=== PATIENT | male | born 1965 | race Caucasian/White ===

== ENCOUNTER 2019-10-05 12:43 | Inpatient (IN) ==
[2019-10-05] MEDS ORDERED: NS 0 ML ONE (13:08)
[2019-10-05] MEDS ORDERED: NS 1,000 ML IV ONE ×2 (13:11→14:43)
--- NOTE | 2019-10-05 13:27 | Diag Imaging Result Doc PS360 ---
CHEST-1 VIEW - 10/05/2019 INDICATION: hypotension COMPARISON: None FINDINGS: The lungs are normally expanded and clear. Heart size and mediastinal contours are normal. No pneumothorax or pleural effusion. IMPRESSION: Negative exam. Electronically signed by Daljit Schaefer 10/05/2019 1:24 PM
[2019-10-05] MEDS: LEVOPHED 8 MG in D5 1/2 NS 250 ML IV SCH ×2 (13:29→23:38)
[2019-10-05 13:36] LABS: INR 1.35; PROTIME 16.9 Seconds (11.0-16.0); PTT 34.6 Seconds (22.3-41.8)
[2019-10-05 14:01] LABS: BASO# 0.02 X1000 (0.0-0.2); BASO% 0.1 % (0.0-0.8); HEMATOCRIT 34.5 % (42.0-52.0); HEMOGLOBIN 11.9 g/dL (14.0-18.0); LYMPH# 0.77 X1000 (1.2-3.4); LYMPH% 2.1 % (20.5-51.1); MCH 31.3 PG (27-31); MCHC 34.5 g/dL (33-37); MCV 90.8 FL (81-99); MONO# 2.38 X1000 (0.11-0.59); MONO% 6.5 % (1.7-9.3); MPV 9.7 FL (7.4-10.4); PLT 239 X1000 (130-400); RDW 14.6 % (11.5-14.5); WBC 36.54 X1000 (4.8-10.8)
[2019-10-05 14:04] LABS: ALB/GLOB RATIO 1.1; ALBUMIN 3.2 g/dL (3.5-5.0); CALCIUM 8.5 mg/dL (8.8-10.2); POTASSIUM 4.4 mmol/L (3.5-5.1); TOTAL BILIRUBIN 0.82 mg/dL (0.20-1.00); TOTAL PROTEIN 6.1 g/dL (6.3-8.3)
[2019-10-05 14:16] LABS: BANDS 12 % (0-1); LARGE PLATELETS OCCASIONAL; LYMPHS 3 % (21-51); MONO 8 % (1-9); SEGS 77 % (42-75)
[2019-10-05] MEDS ORDERED: ZOSYN 3.375 GM in NS 50 ML IV ONE (14:43)
[2019-10-05 14:59] LABS: URINE SOURCE CLEAN CATCH
[2019-10-05 15:13] LABS: BILIRUBIN URINE NEGATIVE (NEGATIVE); BLOOD URINE NEGATIVE (NEGATIVE); COLOR YELLOW; GLUCOSE URINE NEGATIVE (NEGATIVE); KETONE URINE NEGATIVE (NEGATIVE); LEUKOCYTES URINE NEGATIVE (NEGATIVE); NITRITE URINE NEGATIVE (NEGATIVE); PROTEIN URINE TRACE mg/dL (NEGATIVE); SP GRAVITY URINE 1.012; TURBIDITY URINE CLEAR (CLEAR); UROBILINOGEN URINE NORMAL (NORMAL)
[2019-10-05 15:33] LABS: UR EPITHELIAL CELLS <10 /HPF (<10); URINE BACTERIA NEGATIVE /HPF; URINE RBC <10 /HPF (<10); URINE WBC <10 /HPF (<10)
[2019-10-05 15:37] LABS: URINE CASTS NONE SEEN; URINE CRYSTALS NONE SEEN; URINE YEAST NONE SEEN
--- NOTE | 2019-10-05 16:11 | PROVIDER DOCUMENTATION ---
This chart was entered by Ale Selby Scribe, acting as scribe for Kamran Moy MD. HPI-Respiratory General - General Chief Complaint: Shortness of Breath Stated Complaint: SOB, FEVER, BODY PAIN Time Seen by Provider: 10/05/19 13:05 Source: patient Allergies/Adverse Reactions: Patient Allergies Allergy/AdvReac Type Severity Reaction Status Date / Time No Known Allergies Allergy Verified 10/05/19 13:15 Home Medications: Home Medication List Medication Instructions Recorded Confirmed Last Taken Type NK [No Home Medications] 10/05/19 10/05/19 Unknown History - History of Present Illness-Resp Nature of Presenting Problem: 54yom presents to ED cc fever, chills, shortness of breath, weakness, fatigue, night sweats, leg cramps and back pain for last 2 weeks and bad occipital headache for last 2 days. Pt reports he was recently treated with ABT for pneumonia for 10 days. Pt is a smoker. Pt blood pressure is 78/55. Pt is nontoxic and in no respiratory distress upon exam. Quality of Pain: reports: tightness Severity in ED: reports: mild, moderate Onset/Duration: reports: last week Timing: reports: still present Cough Quality/Degree: reports: no cough Current Respiratory Medication Therapy: Initiated see nurses note Modifying Factors: worse with: exertion, deep breath Associated Symptoms: reports: fever/chills, headache, shortness of breath, short of breath Similar Symptoms Previously?: Yes Recently seen or treated by another doctor?: Yes Review of Systems - Adult - REVIEW OF SYSTEMS - ADULT Constitutional: reports: see HPI, chills, fever, fatique, night sweats Eyes: reports: no symptoms reported Ears, Nose, Mouth & Throat: reports: no symptoms reported Cardiovascular: reports: see HPI. denies: chest pain, palpitations Respiratory: reports: see HPI, shortness of breath. denies: cough Gastrointestinal: reports: no symptoms reported Genitourinary: reports: no symptoms reported Musculoskeletal: reports: see HPI, back pain, frequent leg cramps, muscle aches Integumentary: reports: no symptoms reported Neurological: reports: see HPI, headache/migraines Psychiatric: reports: no symptoms reported Endocrine: reports: no symptoms reported Hematologic/Lymphatic: reports: no symptoms reported Allergic/Immunologic: reports: no symptoms reported All Other Systems: Reviewed and Negative Past History - Adult - PAST MEDICAL HISTORY-ADULT Review of Records: reports: Nursing Assessment Review, Medications Reviewed, Social history reviewed & non-contributory. Major Childhood Illnesses: reports: denies history Cardiovascular: reports: denies history Respiratory: reports: denies history Gastrointestinal: reports: denies history Obstetrical/Gynecological: reports: denies history Genitourinary: reports: denies history Musculoskeletal: reports: denies history Neurological: reports: denies history Endocrine/Immune: reports: denies history Other Conditions: reports: denies history - IMMUNIZATION STATUS Childhood Immunizations: See Nurse Assessment Flu Vaccine: See Nurse Assessment - FAMILY HISTORY Family History: reviewed, not pertinent - SOCIAL HISTORY Smoking: cigarettes, greater than 1 pack/day Provider spent 3-5 mins advising pt. on dangers of tobacco.: Discussed manners to quit use, and f/u contacts for add'l counseling. Physical Exam-General - PHYSICAL EXAM-ADULT Initial Vital Signs Reviewed: Yes - CONSTITUTIONAL General Appearance: appears well, alert, no apparent distress. negative: anxious, combative - EYES Eyes: PERRL/EOMI, pink conjunctivae. negative: photophobia - HEAD, EARS, NOSE, MOUTH & THROAT HENMT: normocephalic/atraumatic, moist mucous membranes. negative: angioedema - NECK Neck: supple, normal inspection - RESPIRATORY Respiratory: chest non-tender, lungs clear, normal breath sounds, rhonchi (left side). negative: wheezing - CARDIOVASCULAR Cardiovascular: normal peripheral pulses, regular rate, rhythm. negative: bradycardia, tachycardia - GASTROINTESTINAL (ABDOMEN) Abdominal Exam: normal bowel sounds, non tender, soft. negative: guarding, rebound - MUSCULOSKELETAL Extremity: normal range of motion, non-tender, normal gait, normal inspection, no pedal edema, no calf tenderness, normal capillary refill. negative: deform ity, swelling - SKIN Integumentary: normal color, normal turgor, warm/dry. negative: diaphoresis, jaundice, rash - PSYCHIATRIC Psych/Mental Status: normal mood/affect, oriented x 3. negative: anxious - HEART Score HEART Score: History: Slightly Suspicious HEART Score: ECG: Normal HEART Score: Age: 45-65 Years HEART Score: Risk Factors for Atherosclerotic Disease: No Risk Factors Known HEART Score: Troponin: < or = Normal Limit Total HEART Score:: 1 Progress - PLAN OF CARE/RESULTS Progress/Plan/Lab Results: Vital Signs - 8 hr 10/05/19 12:48 10/05/19 13:10 10/05/19 13:25 Temperature 97.9 F Pulse Rate 93 H 91 H 90 Respiratory Rate 18 26 H 25 H Blood Pressure 64/45 74/46 74/51 O2 Sat by Pulse Oximetry 96 97 99 10/05/19 13:30 10/05/19 13:37 10/05/19 13:40 Temperature Pulse Rate 88 86 92 H Respiratory Rate 24 24 30 H Blood Pressure 76/49 86/58 82/58 O2 Sat by Pulse Oximetry 99 100 100 10/05/19 13:45 10/05/19 13:50 10/05/19 13:55 Temperature Pulse Rate 83 93 H 77 Respiratory Rate 26 H 27 H 32 H Blood Pressure 96/67 79/47 90/57 O2 Sat by Pulse Oximetry 100 99 100 10/05/19 14:10 10/05/19 14:40 10/05/19 14:55 Temperature Pulse Rate 83 86 85 Respiratory Rate 26 H 26 H 25 H Blood Pressure 95/63 89/56 90/55 O2 Sat by Pulse Oximetry 100 97 98 10/05/19 15:15 10/05/19 15:40 10/05/19 15:42 Temperature Pulse Rate 90 84 93 H Respiratory Rate 28 H 30 H 30 H Blood Pressure 110/74 77/58 93/70 O2 Sat by Pulse Oximetry 100 98 99 10/05/19 15:38 Influenza Screen - Final Nasopharyngeal Laboratory Results - last 24 hr 10/05/19 10/05/19 10/05/19 13:08 13:08 13:08 WBC 36.54 H RBC 3.80 L Hgb 11.9 L Hct 34.5 L MCV 90.8 MCH 31.3 H MCHC 34.5 RDW Std Deviation 14.6 H Plt Count 239 MPV 9.7 Neut % (Auto) Not Reportable Lymph % (Auto) 2.1 L [place] % (Auto) 6.5 Eos % (Auto) Not Reportable Baso % (Auto) 0.1 Neut # (Auto) Not Reportable Lymph # (Auto) 0.77 L [place] # (Auto) 2.38 H Eos # (Auto) Not Reportable Baso # (Auto) 0.02 Segmented Neutrophils 77 H Band Neutrophils 12 H Lymphocytes 3 L Monocytes 8 Pathologist Review Large Platelets OCCASIONAL PT INR PTT (Actin FS) Sodium 131 L Potassium 4.4 Chloride 95 L Carbon Dioxide 19 L Anion Gap 17 BUN 28 H Creatinine 2.0 H Estimated GFR/1.73 m2 35 BUN/Creatinine Ratio 14 Glucose 85 Calculated Osmolality 267 Calcium 8.5 L Total Bilirubin 0.82 AST 26 ALT 26 Alkaline Phosphatase 74 Creatine Kinase 69 Troponin T High Sens 12 Total Protein 6.1 L Albumin 3.2 L Globulin 2.9 Albumin/Globulin Ratio 1.1 Plasma Lactate Urine Source Urine Color Urine Turbidity Urine pH Ur Specific [place] Urine Protein Ur Glucose (Stick) Ur Ketones (Stick) Urine Blood Urine Nitrite Urine Bilirubin Urobilinogen Dipstick Urine Leukocytes Urine WBC (Auto) Urine RBC (Auto) U Epithel Cells (Auto) Urine Bacteria (Auto) Urine Crystals Small Round Cells Urine Casts Urine Yeast-like Cells 10/05/19 10/05/19 10/05/19 13:08 13:08 14:41 WBC RBC Hgb Hct MCV MCH MCHC RDW Std Deviation Plt Count MPV Neut % (Auto) Lymph % (Auto) [place] % (Auto) Eos % (Auto) Baso % (Auto) Neut # (Auto) Lymph # (Auto) [place] # (Auto) Eos # (Auto) Baso # (Auto) Segmented Neutrophils Band Neutrophils Lymphocytes Monocytes Pathologist Review Large Platelets PT 16.9 H INR 1.35 PTT (Actin FS) 34.6 Sodium Potassium Chloride Carbon Dioxide Anion Gap BUN Creatinine Estimated GFR/1.73 m2 BUN/Creatinine Ratio Glucose Calculated Osmolality Calcium Total Bilirubin AST ALT Alkaline Phosphatase Creatine Kinase Troponin T High Sens Total Protein Albumin Globulin Albumin/Globulin Ratio Plasma Lactate 3.1 H Urine Source CLEAN CATCH Urine Color YELLOW Urine Turbidity CLEAR Urine pH 6.0 Ur Specific [place] 1.012 Urine Protein TRACE A Ur Glucose (Stick) NEGATIVE Ur Ketones (Stick) NEGATIVE Urine Blood NEGATIVE Urine Nitrite NEGATIVE Urine Bilirubin NEGATIVE Urobilinogen Dipstick NORMAL Urine Leukocytes NEGATIVE Urine WBC (Auto) <10 Urine RBC (Auto) <10 U Epithel Cells (Auto) <10 Urine Bacteria (Auto) NEGATIVE Urine Crystals NONE SEEN Small Round Cells Not Reportable Urine Casts NONE SEEN Urine Yeast-like Cells NONE SEEN 10/05/19 15:23 WBC RBC Hgb Hct MCV MCH MCHC RDW Std Deviation Plt Count MPV Neut % (Auto) Lymph % (Auto) [place] % (Auto) Eos % (Auto) Baso % (Auto) Neut # (Auto) Lymph # (Auto) [place] # (Auto) Eos # (Auto) Baso # (Auto) Segmented Neutrophils Band Neutrophils Lymphocytes Monocytes Pathologist Review Large Platelets PT INR PTT (Actin FS) Sodium Potassium Chloride Carbon Dioxide Anion Gap BUN Creatinine Estimated GFR/1.73 m2 BUN/Creatinine Ratio Glucose Calculated Osmolality Calcium Total Bilirubin AST ALT Alkaline Phosphatase Creatine Kinase Troponin T High Sens Total Protein Albumin Globulin Albumin/Globulin Ratio Plasma Lactate 2.3 H Urine Source Urine Color Urine Turbidity Urine pH Ur Specific [place] Urine Protein Ur Glucose (Stick) Ur Ketones (Stick) Urine Blood Urine Nitrite Urine Bilirubin Urobilinogen Dipstick Urine Leukocytes Urine WBC (Auto) Urine RBC (Auto) U Epithel Cells (Auto) Urine Bacteria (Auto) Urine Crystals Small Round Cells Urine Casts Urine Yeast-like Cells Orders Category Date Time Status Cardiac Monitoring NOW Care 10/05/19 13:06 Active IV Insertion NOW Care 10/05/19 13:06 Completed NEWS Score 2-4:Order NEWS Lactate Series NOW Care 10/05/19 12:53 Active NEWS Score >or=5:Order NEWS Bundle S.O. NOW Care 10/05/19 13:08 Active Notify Provider of NEWS Score NOW Care 10/05/19 13:06 Active CHEST-1 VIEW [RAD] Stat Exams 10/05/19 13:[address] THORAX/ABD/PELVIS W/O CON [CT] Stat Exams 10/05/19 15:18 Ordered BLOOD CULTURE [BLDCUL] Stat Lab 10/05/19 13:27 Results CBC WITH DIFF [HEME] Stat Lab 10/05/19 13:08 Completed CK PROFILE [SP CHEM] Stat Lab 10/05/19 13:08 Completed COMPREHENSIVE METABOLIC PANEL [CHEM] Stat Lab 10/05/19 13:08 Completed INFLUENZA SCREEN A/B Stat Lab 10/05/19 15:38 Completed LACTATE, PLASMA [CHEM] Lab 10/05/19 15:23 Completed LACTATE, PLASMA [CHEM] Lab 10/05/19 19:15 Uncollected LACTATE, PLASMA [CHEM] Q3H Lab 10/05/19 13:08 Completed PROTIME WITH INR [COAG] Stat Lab 10/05/19 13:08 Completed PTT [COAG] Stat Lab 10/05/19 13:08 Completed TROPONIN T HIGH SENSITIVITY Stat Lab 10/05/19 13:08 Completed URINALYSIS W/POSS RFLX CULT [URINALYSIS] Stat Lab 10/05/19 14:41 Completed URINE MANUAL MICROSCOPIC [URINALYSIS] Stat Lab 10/05/19 14:41 Completed 0.9% Sodium Chloride Inj [Ns] 1,000 ml Med 10/05/19 13:08 Discontinued .ROUTE As directed 0.9% Sodium Chloride Inj [Ns] 1,000 ml Med 10/05/19 13:11 Discontinued IV 999 mls/hr 0.9% Sodium Chloride Inj [Ns] 1,000 ml Med 10/05/19 14:43 Discontinued IV 999 mls/hr Dextrose 5%-0.45% NaCl Inj [D5 1/2 Ns] 250 ml Med 10/05/19 13:15 Active Norepinephrine [Levophed] 8 mg IV As Directed mls/hr Linezolid 600 mg/D5w [Zyvox 600 mg/D5w] Med 10/05/19 16:00 Active 600 mg in 300 ml IV Q12H Meropenem [Merrem] 500 mg Med 10/05/19 16:00 Active 0.9% Sodium Chloride Inj [Ns] 50 ml IV Q8H Piperacillin/Tazobactam [Zosyn] 3.375 gm Med 10/05/19 14:43 Discontinued 0.9% Sodium Chloride Inj [Ns] 50 ml IV NOW O2 Per Protocol Stat Oth 10/05/19 13:06 Active Transfer/Admit Order [TRANSFER] Routine Transfer 10/05/19 15:23 Ordered Result Diagrams: 10/05/19 13:08 10/05/19 13:08 - EKG 1 Time of EKG reading by physician:: 13:00 EKG Read and Signed by:: Kamran Moy EKG Interpretation (*Must complete 3 of following elements*): Normal Rate: 94 Rhythm: NSR [place]: normal QRS: normal AR Interval: normal 2 Time of EKG reading by physician:: 15:18 EKG Read and Signed by:: Kamran Moy EKG Interpretation (*Must complete 3 of following elements*): Abnormal (septal infarct, age undetermined) Rate: 92 Rhythm: NSR [place]: normal QRS: normal AR Interval: normal Prior EKG Comparison: unchanged from prior - XRAY 1 XRAY: Bilateral XRAY Study: Chest Impression: See EMR Report (IMPRESSION: Negative exam. Electronically signed by Daljit Schaefer 10/05/2019 1:24 PM) - CONSULTS/PCP/HOSPITALIST Notification #1 *Consult/PCP/Hospitalist*: Helen for Hospitalist Time Discussed: 16:08 Consult Disposition: Will see in ED, Admit Departure - Departure Date of Disposition Decision: 10/05/19 Time of Disposition Decision: 16:07 DIAGNOSIS: Leukocytosis, Sepsis, Renal insufficiency, Hyponatremia Disposition: ADMITTED INPATIENT 09 Certified Medical Emergency: Emergent Condition: Fair Referrals and Follow-Ups: None,PCP [Primary Care Provider] - Discharge Education: Tobacco Use Disorder - Critical Care Note This patient required my direct & personal management of CC.: Yes Total Time (mins): 35 Critical Care Statement: This patient required my direct personal management to treat or rule out processes, the absence of which, could potentiallly result in sudden, clinically significant life or limb threatening deterioration. Attestation - Physician/ JEREMÍAS Attestation Patient care was provided by Advanced Practice Provider:: No The physician spent face to face time with patient:: Yes Advanced Practice Provider documentation review:: Supervising physician onsite and consulted in the evaluation and care of this patient. The physician did have a face to face encounter with the patient. This chart was documented by the indicated scribe, (Ale Selby Scribe) and accurately reflects the services I performed and decisions made by me, Kamran Moy MD, as attested by the provider's signature.
--- NOTE | 2019-10-05 16:11 | SEPSIS: TISSUE PERFUSION ASSMT ---
Sepsis: Tissue Perfusion Assmt - Physical Exam Assessment Date: 10/05/19 Time Assessment Initialized: 16:09 Vital Signs: Last Vital Signs Temp 97.9 F 10/05/19 12:48 Pulse 93 H 10/05/19 15:42 Resp 30 H 10/05/19 15:42 BP 93/70 10/05/19 15:42 Pulse Ox 99 10/05/19 15:42 Height 5 ft 7 in Weight 72.575 kg 10/05/19 16:09 See nurses note Lung Sounds: lungs clear Heart Sounds: Regular Capillary Refill Time: Less Than 2 Seconds Peripheral Pulse Evaluation: radial (R): 4+, radial (L): 4+, posterior tibialis (R): 4+, posterior tibialis (L): 4+ Skin Exam: pink, turgor good - Alternative Fluid Bolus Bolus Option: Alternative Fluid Resuscitation Bolus for morbidly obese patients with a BMI >30, Refer to [place] Body Weight Chart for Reference. Is patient's BMI >30?: No Fluid Bolus dosed using the [place] Body Weight Chart: No - Impression Impression: Tissue Perfusion Adequate - Plan Plan: See Orders
--- NOTE | 2019-10-05 16:18 | HISTORY AND PHYSICAL ---
CHIEF COMPLAINT: Weakness, shortness of breath for 3 months. HPI: This is a 54-year-old gentleman who denies any prior health history who presented to the emergency room complaining of a little over 3 months of shortness of breath, just generalized weakness, being tired all the time. He states he is being seen at walk-in clinics as he has no primary care physician the latest being about 2 weeks ago for which he was given antibiotics. He did state that he took 10 days of antibiotics and symptoms have not improved whatsoever. He denies taking his temperature although he does report subjective fevers with body aches and chills. He denied any chest pain or palpitations, a productive cough. Patient complains of occipital headache for 2 days. He also complains of night sweats and leg cramps. PAST MEDICAL HISTORY: Denies. PAST SURGICAL HISTORY: Denies. SOCIAL HISTORY: He smokes about a pack a day. He denies any alcohol or illicit drug use. ALLERGIES: No known drug allergies. HOME MEDICATIONS: Denies. FAMILY HISTORY: Positive for hypertension. REVIEW OF SYSTEMS: Discussed with patient with pertinent positives stated in the HPI. He denied any syncope, any chest pain or palpitations, a productive cough, any vomiting, diarrhea, constipation, black or bloody vomitus or stools, hematuria, dysuria, frequency, urgency. PHYSICAL EXAMINATION: GENERAL: This is a 54-year-old gentleman who is lying on the stretcher in the emergency room in no distress. VITAL SIGNS: Blood pressure is 77/58 with a heart rate of 84, respirations are 22 to 26, temperature is 97.9 degrees with O2 saturations that are 98-100% on room air. HEENT: Pupils are equal, round, react to light. EOMs are intact. Sclerae are anicteric. Head is normocephalic, atraumatic. Mucous membranes are dry. NECK: Supple with trachea midline. CARDIOVASCULAR: Regular rate and rhythm. S1 and S2 are appreciated. No murmur. PULMONARY: Breath sounds are diminished throughout. Chest rises and falls symmetrically with respiration. Chest wall is nontender to palpation. GASTROINTESTINAL: Abdomen is soft, nontender, nondistended with bowel sounds in all 4 quadrants. GENITOURINARY: No CVA or suprapubic tenderness. NEUROLOGIC: He is alert and oriented x3. SKIN: Pale, warm and dry. LABS: WBC is 36.5 with hemoglobin 11.9, hematocrit 34.5 and platelets of 239,000. Sodium 131, potassium 4.4, BUN 28, creatinine 2 with a glucose of 85, total protein is 6.1. Urinalysis is essentially negative. Blood cultures are pending. Chest x-ray revealed negative exam. Lungs are normal expanded and clear, heart size, mediastinal contours are normal. No pneumothorax or pleural effusion. ASSESSMENT AND PLAN: 1. Hypotension. Levophed per protocol. 2. Bradycardia. He did have transient drop in heart rate ranged from 40 to 44. He was alert, oriented, denied any symptoms at that time. continue to monitor on telemetry. 3. Shortness of breath. supplemental oxygen as needed. 4. Fever and chills. check a flu A and B, antibiotic coverage of Zyvox and Merrem renally dosed. 5. Leukocytosis. 6. Hyponatremia. continue with saline and recheck labs in the morning. 7. Acute kidney injury. Continue with hydration, renal dose medications as appropriate. The patient was evaluated and plan was discussed with Dr. Leavitt. Further treatments pending hospital course. Dictated by ALETA Echevarria for Venkata Cm MD Addendum: Patient seen and examined by myself. Agree with ALETA note. It reflects my assessment and plan. Patient is being admitted for septic shock with source of sepsis not clear. Will send him to ICU, continue with vasopressors and follow results of CT thorax, abdomen and pelvis. cc: ALETA Echevarria MD [facility]
--- NOTE | 2019-10-05 16:25 | EKG Report ---
Test Performed on : 10/05/2019 1:00:10 PM Test Reason : ED. NO order in [place] Blood Pressure : / mmHG Vent. Rate : 094 BPM Atrial Rate : 094 BPM P-R Int : 138 ms QRS Dur : 092 ms QT Int : 352 ms P-R-T Axes : 041 025 047 degrees QTc Int : 440 ms Normal sinus rhythm. Normal ECG No previous ECGs available Unconfirmed Result
--- NOTE | 2019-10-05 16:48 | Diag Imaging Result Doc PS360 ---
EXAM: CT THORAX/ABD/PELVIS W/O CON 10/05/2019 HISTORY: leukocytosis, hypotension, dyspnea TECHNIQUE: This exam was performed using automated exposure control, adjustment of mA or kV according to patient size, and/or use of iterative reconstruction technique. COMMENT: Thorax: There are no previous studies available for comparison. There are prominent prevascular and paratracheal nodes with a precarinal node measuring up to 14 mm in size. There are somewhat smaller aorticopulmonary window nodes. There is subcarinal adenopathy. There is infrahilar mass like opacity and ill-defined opacity in the left upper lobe. There is some increase in interstitial markings in the left posterior costophrenic sulcus. The same is true of the right lower lobe. There are emphysematous changes and pleural fibrotic appearing opacity in both apices. Systems are distended. Otherwise no definite acute abnormalities are present in the visualized portion of the abdomen. The regional skeleton appears to be intact. ABDOMEN/pelvis: There is hydronephrosis and bilateral ureterectasis. The urinary bladder is distended. There are no apparent stones. There is no evidence of bowel obstruction. There is no free fluid. The prostate gland is not particularly enlarged. There are bilateral bone islands in the femoral heads. Evaluation of the solid organs is somewhat suboptimal due to the lack of contrast. IMPRESSION: 1. Left upper and lower lobe pneumonia. The possibility of neoplastic disease in the left lower lobe cannot be excluded. Mediastinal adenopathy. 2. Urinary retention in the bladder with bilateral hydronephrosis. Electronically signed by Logan Mena 10/05/2019 4:46 PM
[2019-10-05] MEDS ORDERED: ZOFRAN IV PRN (16:49)
[2019-10-05] MEDS: MERREM 500 MG in NS 50 ML IV SCH ×2 (17:04→23:01)
[2019-10-05] MEDS: ZYVOX 600 MG/D5W 600 MG/300 ML IVPB IV SCH (17:04)
[2019-10-05] MEDS ORDERED: OFIRMEV 1000 MG/ISOTONIC SOLN 1,000 MG/100 ML BOTTLE IV PRN (19:49)
[2019-10-06] MEDS: ZYVOX 600 MG/D5W 600 MG/300 ML IVPB IV SCH ×2 (03:16→15:27)
[2019-10-06 05:24] LABS: BASO# 0.03 X1000 (0.0-0.2); BASO% 0.1 % (0.0-0.8); HEMOGLOBIN 12.1 g/dL (14.0-18.0); LYMPH# 1.26 X1000 (1.2-3.4); LYMPH% 3.8 % (20.5-51.1); MCH 30.9 PG (27-31); MCHC 34.6 g/dL (33-37); MCV 89.5 FL (81-99); MONO# 1.35 X1000 (0.11-0.59); MONO% 4.1 % (1.7-9.3); PLT 270 X1000 (130-400); RBC 3.91 XMIL (4.7-6.1); RDW 14.5 % (11.5-14.5); WBC 32.92 X1000 (4.8-10.8)
[2019-10-06 06:00] LABS: AGAP 11; ALB/GLOB RATIO 0.8; ALBUMIN 2.7 g/dL (3.5-5.0); ALKALINE PHOSPHATASE 68 U/L (32-122); BUN 20 mg/dL (8-22); CALCIUM 8.3 mg/dL (8.8-10.2); CHLORIDE 106 mmol/L (98-107); COSMO 281; ESTIMATED GFR > 60; GLUCOSE 119 mg/dL (70-104); GOT 15 U/L (10-34); GPT 18 U/L (10-44); MAGNESIUM 1.9 mg/dL (1.5-2.7); POTASSIUM 3.5 mmol/L (3.5-5.1); SODIUM 139 mmol/L (136-145); TCO2 22 mmol/L (25-35); TOTAL BILIRUBIN 0.42 mg/dL (0.20-1.00); TOTAL PROTEIN 5.9 g/dL (6.3-8.3)
[2019-10-06] MEDS ORDERED: NS 1,000 ML IV ONE (06:08)
[2019-10-06 06:15] LABS: AGAP 12; ALBUMIN 2.7 g/dL (3.5-5.0); BUN 20 mg/dL (8-22); CALCIUM 8.4 mg/dL (8.8-10.2); CHLORIDE 105 mmol/L (98-107); COSMO 279; ESTIMATED GFR > 60; GLUCOSE 119 mg/dL (70-104); PHOSPHORUS 2.2 mg/dL (2.7-4.5); POTASSIUM 3.5 mmol/L (3.5-5.1); SODIUM 138 mmol/L (136-145); TCO2 21 mmol/L (25-35)
--- NOTE | 2019-10-06 06:38 | PROGRESS NOTE ---
DATE: 10/06/2019 SUBJECTIVE: The patient reports breathing better. He had an episode of fever last night of 101.6 degrees. No other complaints noted. OBJECTIVE: Vital Signs: Temperature is 98.7 degrees, heart rate 75, respiratory 17, blood pressure 93/62, O2 saturation 95% on room air. General Examination: This is a 54-year-old male in no acute distress. Cardiovascular: S1, S2 heard. No murmurs, gallops, or rubs. Regular rate and rhythm. Respiratory: Decreased breath sounds globally. Minimal rhonchi in both pulmonary bases. Patient is not using any accessory muscles or having work of breathing. Abdomen: Soft. Nontender to palpation. Bowel sounds present. No organomegaly. Extremities: No clubbing, cyanosis, or edema. Peripheral pulses present in both legs. Neurological: Patient is alert and oriented x3. Moves 4 extremities. LABORATORY DATA: White cell count 32.92, hemoglobin 12.1, hematocrit 35.0, platelets 270,000. BMP still pending. CT of the chest and pelvis showed left upper and lower lobe pneumonia. The possibility of neoplastic disease in the left lower lobe cannot be excluded with mediastinal adenopathy and urinary retention in the bladder with bilateral lower hydronephrosis. ASSESSMENT AND PLAN: 1. Septic shock secondary to left upper and lower lobe pneumonia. The patient continues to be on vasopressors and we are weaning off from that. We will continue to provide 1 L of normal saline bolus. We will continue with normal saline at 100 mL/h. The patient is still spiking fever. White cell count has improved a little bit from 36,000 to 32,000. We will continue with current management and in this case is Zyvox and meropenem. Of course, blood cultures and urine cultures still pending. We will continue to monitor this patient closely in ICU. 2. Acute kidney injury/bilateral The results from this CMP are still pending. The CT of the chest abdomen and pelvis does not show any obstruction. We are going to do a renal ultrasound to see if there is any obstruction in the urinary system. Will consult Urology and Nephrology and will go from there. We will monitor renal profile daily. 3. Tachycardic that was present on admission but resolved right now. 4. Disposition. We will continue to monitor this patient closely. We will follow recommendation from subspecialists. cc: Venkata Cm MD MTDD
[2019-10-06] MEDS: NS 1,000 ML IV SCH ×2 (07:35→15:31)
--- NOTE | 2019-10-06 07:39 | EKG Report ---
Test Performed on : 10/05/2019 3:18:46 PM Test Reason : BRADYCARDIA Blood Pressure : / mmHG Vent. Rate : 092 BPM Atrial Rate : 092 BPM P-R Int : 132 ms QRS Dur : 092 ms QT Int : 364 ms P-R-T Axes : -06 009 029 degrees QTc Int : 450 ms Normal sinus rhythm. Septal infarct , age undetermined Abnormal ECG When compared with ECG of 05-OCT-2019 13:00, (Unconfirmed) Septal infarct is now present Unconfirmed Result
[2019-10-06] MEDS: MERREM 500 MG in NS 50 ML IV SCH ×3 (07:40→23:32)
[2019-10-06] MEDS: PROTONIX IV SCH (10:10)
[2019-10-06] MEDS: SODIUM CHLORIDE 0.9% INJ SCH (10:11)
[2019-10-06 10:28] LABS: UR CREAT RANDOM 57.1 mg/dL (14-26); UR PROT RANDOM 9.7 mg/dL
--- NOTE | 2019-10-06 11:49 | NEPHROLOGY CONSULTATION ---
DATE: 10/06/2019 TIME SEEN: 729. CHIEF COMPLAINT: "I could not breathe." HISTORY OF PRESENTING ILLNESS: Mr. Hanson is a 54-year-old, white male, who denies any past medical history besides recurrent pneumonia. He states that in July, he went to a medical/surgical clinic for shortness of breath, malaise, complaints of sore legs, and a nonproductive cough. He was given a 10-day supply of doxycycline, which he completed. He says that he felt better while taking the antibiotics, but shortly after his doxycycline was completed, his symptoms started to come back. These included shortness of breath, malaise, and nonproductive cough. He went to a different medical/surgical clinic this time with those presenting symptoms, and they did a chest x-ray which revealed pneumonia. He again was given antibiotics, but cannot recall what the name of these were. Again, he felt better while taking the antibiotics, but after completing them 2 weeks ago, he started feeling bad again. 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 Over the weekend, his shortness of breath increased. He also began having fever and chills, and his cough turned productive with yellow sputum. He denies any pain when coughing. He denies any edema or chest pain. He does admit to decreased oral intake over the weekend. Besides the decreased urine production, he does not complain of any other urinary symptoms. Upon arrival to the emergency department, his WBC was 36, with a creatinine of 2. His chest x-ray was negative. He was swabbed for the fluid and was negative. He was initiated on sepsis protocol, given IV normal saline bolus, and started on meropenem and Zyvox. We were consulted for acute kidney injury. PAST MEDICAL HISTORY: Previous pneumonia. PAST SURGICAL HISTORY: Denies any. SOCIAL HISTORY: He works at a [employer] plant. He lives alone. He smokes about a pack a day. He denies any alcohol or illicit drug use. However, he admits to a past marijuana use. FAMILY HISTORY: Positive for hypertension. ALLERGIES: No known allergies. HOME MEDICATIONS: He denies any. REVIEW OF SYSTEMS: A 14-point review of system was complete, and all pertinent positives are listed above in the HPI. PHYSICAL EXAMINATION: Vital Signs: Temperature 99.7 degrees, pulse 86, respirations 18, blood pressure 94/59, O2 saturation 94% on room air. General: White male, lying in bed in no acute distress. HEENT: Normocephalic, atraumatic. Pupils equal and reactive. Conjunctivae pink. Mucous membranes are dry. Neck: Supple, 6 cm JVD with hepatojugular reflux noted. Cardiovascular: S1, S2. Regular rate and rhythm. No gallop noted. Pulmonary: Diminished breath sounds to posterior bases. Abdomen: Soft, nontender, nondistended. Bowel sounds present. : Not inspected. Extremities: No clubbing, cyanosis, or edema noted. Neurologic: Alert and oriented to person, place, and time. LABORATORY DATA: WBC 32.92, hemoglobin 12.1, hematocrit 35, platelet count 270,000. Sodium 138, potassium 3.5, chloride 105, carbon dioxide 21, BUN 20, creatinine 1.0. Intake 1885, output 2865. IMAGING: Chest x-ray, impression: Negative exam. Chest, abdomen, and pelvis CT, impression: Left upper and lower lobe pneumonia. The possibility of neoplastic disease in the left lower lobe cannot be excluded. Mediastinal adenopathy. Urinary retention in the bladder with bilateral hydronephrosis. ASSESSMENT AND PLAN: 1. Acute kidney injury with bilateral hydronephrosis and hypotension. The patient's admitting creatinine was 2.0, and after fluid resuscitation, it is down to 1.0 today. His imaging suggests bilateral hydronephrosis. However, his urinary output per voiding was 2865. We will obtain urine electrolytes, and monitor strict intake and output. No change in plan noted at this time. 2. Blood pressure. Hypotensive. Requiring vasopressor support. 3. Anemia. Low, but stable. Does not meet transfusion criteria. 4. Fluid volume status. He does not appear intravascularly overloaded. 5. Electrolytes and acid-base balance. These are acceptable. 6. Nutrition. Diet order in place. 7. Physical deconditioning. Defer to primary. 8. Medication review. Reviewed. I would like to thank you for allowing us to follow with this patient. PVR was normal. Renal function is normal. We will sign off. rg Dictated by ALETA Cummins for Jason Narayanan MD Face to face encounter, data reviewed, discussed with Kenan Snider on 10/06/19. I agree with the above assessment and plan of care. rik cc: Jason Narayanan MD [facility]
[2019-10-06] MEDS: LEVOPHED 8 MG in D5 1/2 NS 250 ML IV SCH (12:47)
--- NOTE | 2019-10-06 15:54 | PULMONOLOGY CONSULTATION ---
DATE: 10/06/2019 REQUESTING PROVIDER: Venkata Cm MD. REASON FOR CONSULTATION: Pneumonia, suspected malignancy. HISTORY OF PRESENT ILLNESS: This is a 54-year-old male with no significant medical history. He presented to the ER yesterday with generalized weakness and shortness of breath for 3 months with fever, chills, night sweats, leg cramps and back pain for 2 weeks, and occipital headache for 2 days. Initial workup in the ER revealed significant leukocytosis, acute renal failure, left upper and lower lobe pneumonia with possibility of neoplastic disease in the left lower lobe and urinary retention with bilateral hydronephrosis. He has been admitted to the ICU for further evaluation and management. Antibiotic, including linezolid, meropenem and Zosyn, have been started since admission with Zosyn discontinued after 1 dosage. The patient has been on norepinephrine drip for shock. He is lying in bed on room air with oxygen saturation in high 90s at this time. There is no acute distress noted. He reported he has been treated with antibiotic outpatient at walk-in clinics for 10 days with no improvement prior to this admission. He reports occasional nonproductive cough and sneezing, headache, generalized weakness, fatigue, night sweats, leg cramps, back pain, fever, chills, but no chest pain, palpitation, nausea, vomiting, bowel habit change, urination discomfort. PAST MEDICAL HISTORY: Denies. PAST SURGICAL HISTORY: Denies. SOCIAL HISTORY: The patient smokes about a pack per day. He reports no alcohol or illicit drug use. He lives at home with his girlfriend and stepson. ALLERGIES: No known drug allergies. FAMILY HISTORY: Positive for hypertension. REVIEW OF SYSTEMS: A 10-point review of systems was conducted and the pertinent is listed within the HPI, otherwise noncontributory. PHYSICAL EXAMINATION: Vital Signs: Temperature 99.7, blood pressure 118/59, pulse 83, respiratory rate 22, oxygen saturation 94% on room air. General: Lying in bed on room air with no acute distress noted. HEENT: Atraumatic, normocephalic. Trachea midline. Mucosa pink and slightly dry. Pupils equal, round, reactive to light. Respiratory: Even and unlabored. No increased work of breathing. No accessory muscle use noted. Symmetrical excursion. Clear to auscultation with good air entrance bilaterally. Cardiovascular: Regular rate and rhythm with S1, S2 appreciated. Gastrointestinal: Soft, nontender, nondistended. Normoactive bowel sounds in all 4 quadrants. Extremities: No pedal edema. No cyanosis. No clubbing. Neurologic: Alert and oriented x3. Speech fluent. Follows commands. LABORATORY DATA: White blood cell 32.92, hemoglobin 12.1, hematocrit 35.0, platelets 270,000. Sodium 138, potassium 3.5, chloride 105, carbon dioxide 21, BUN 20, creatinine 1.0, glucose 119. IMAGING DATA: CT thorax, abdomen and pelvis without contrast on 10/05/2019 showed left upper and lower lobe pneumonia with a possibility of neoplastic disease in the left lower lobe, mediastinal adenopathy and urinary retention in the bladder with bilateral hydronephrosis. ASSESSMENT: This is a 54-year-old male with no significant medical history. He has been admitted to the ICU since 10/05/2019 with septic shock, left upper and lower lobe pneumonia, acute kidney injury with bilateral hydronephrosis. 1. Left upper and lower lobe pneumonia with prominent prevascular and peritracheal mass measuring up to 14 mm in size. Some emphysematous changes and pleural fibrotic appearing opacity in both apices. 2. Septic shock. Leukocytosis trending down from 36.54 to 32.92 today. The patient is still having fever. He is on Levophed drip for blood pressure control. 3. Acute kidney injury, which has been resolved based on the labs from this morning. 4. Ongoing tobacco use prior to this admission. PLAN: 1. Supplemental oxygen as needed. 2. Retitrated vasopressor, Levophed drip. The patient needs clinical protocol. He will monitor patient's response closer. 3. Antibiotics including linezolid and meropenem have been started since admission. 4. We will check ABG and chest x-ray if indicated. 5. For precaution, we also ordered coronavirus 19 test to rule out Covid-19 infection. 6. Daily smoking cessation education. The patient is highly recommend to quit smoking. He already has some underlying pulmonary change based on CT including emphysema and pulmonary fibrosis. 7. Repeat CT scan after antibiotic therapy. Further recommendation will be based on CT scan results. 8. Further recommendations pending hospital course. Thank you for the courtesy of this consult. Dr. Valente's examination, evaluation, management and orders. ALETA did dictation for Dr. Valente according to his direction. Total evaluation time in minutes 32. Dictated by ALETA Fox for Rick Valente MD cc: ALETA Fox MD [facility]
--- NOTE | 2019-10-06 16:37 | Diag Imaging Result Doc PS360 ---
US RENAL 2 (RETROPER) COMPLETE - 10/06/2019 INDICATION: bilateral hydronephrosis TECHNIQUE: COMPARISON: CT from 10/05/2019 FINDINGS: The urinary bladder is empty. The kidneys are normal. There is no hydronephrosis. The right kidney measures 11.8 x 5.5 x 4.9 cm. The left kidney measures 10.8 x 5 x 6 cm. IMPRESSION: Negative exam. Electronically signed by Daljit Schaefer 10/06/2019 4:35 PM
[2019-10-07] MEDS: NS 1,000 ML IV SCH ×2 (03:16→16:56)
[2019-10-07] MEDS: ZYVOX 600 MG/D5W 600 MG/300 ML IVPB IV SCH ×2 (03:16→17:37)
[2019-10-07 06:46] LABS: BASO# 0.02 X1000 (0.0-0.2); BASO% 0.1 % (0.0-0.8); EOS# 0.32 X1000 (0.0-0.7); EOS% 2.2 % (0.0-10.0); HEMATOCRIT 31.9 % (42.0-52.0); LYMPH# 1.93 X1000 (1.2-3.4); LYMPH% 13.1 % (20.5-51.1); MCH 31.3 PG (27-31); MCHC 34.5 g/dL (33-37); MCV 90.9 FL (81-99); MONO# 0.95 X1000 (0.11-0.59); MONO% 6.5 % (1.7-9.3); MPV 10.2 FL (7.4-10.4); NEUT# 11.46 X1000 (1.4-6.5); NEUT% 78.1 % (42.2-75.2); PLT 230 X1000 (130-400); RBC 3.51 XMIL (4.7-6.1); RDW 14.6 % (11.5-14.5); WBC 14.68 X1000 (4.8-10.8)
[2019-10-07 06:48] LABS: AGAP 10; ALBUMIN 2.6 g/dL (3.5-5.0); BUN 13 mg/dL (8-22); CALCIUM 8.4 mg/dL (8.8-10.2); CHLORIDE 104 mmol/L (98-107); COSMO 272; CREATININE 0.9 mg/dL (0.7-1.2); ESTIMATED GFR > 60; GLUCOSE 96 mg/dL (70-104); PHOSPHORUS 1.9 mg/dL (2.7-4.5); POTASSIUM 3.3 mmol/L (3.5-5.1); SODIUM 136 mmol/L (136-145); TCO2 22 mmol/L (25-35)
[2019-10-07] MEDS ORDERED: SODIUM PHOSPHATE 40 MMOL in NS 250 ML IV ONE (07:11)
[2019-10-07] MEDS ORDERED: KLOR-CON PO ONE (07:11)
[2019-10-07 07:17] LABS: BANDS 10 % (0-1); EOS 2 % (1-10); HYPOCHROM 1+; LYMPHS 12 % (21-51); MONO 6 % (1-9); SEGS 70 % (42-75)
--- NOTE | 2019-10-07 07:27 | PROGRESS NOTE ---
DATE: 10/07/2019 SUBJECTIVE: Patient reports feeling much better. No fever or chills reported. Not requiring any oxygen supplementation. OBJECTIVE: Vital Signs: Temperature 98.1 degrees, heart rate 96 respiratory rate 16, blood pressure 155/118, and O2 saturation 99% on room air. General: This is a 55-year-old male lying in bed in no acute distress. Cardiovascular: S1, S2 heard. No murmurs, gallops, or rubs. Regular rate and rhythm. Respiratory: Decreased breath sounds globally with minimal rhonchi noted. On the left base, patient is not using any accessory muscles or having work of breathing. Abdomen: Soft. Nontender to palpation. Bowel sounds present. No organomegaly. Extremities: No clubbing, cyanosis, or edema. Peripheral pulses present in both legs. Neurological: Patient alert and oriented x3. Moves all 4 extremities. LABORATORY DATA: White cell count 14.68, hemoglobin 11.0, hematocrit 31.9, and platelets 230,000. BMP reveals creatinine 0.9 with phosphorus 1.9, and potassium 3.3. ASSESSMENT AND PLAN: 1. Septic shock secondary to left upper and lower lobe pneumonia. Clinically, patient is doing much better. Not spiking any fever in the last 24 hours. White cell count is improving a lot [place] [address] to [address] today. We will continue with Zyvox and meropenem. Blood cultures and urine cultures are still pending. We will continue with IV fluids. 2. Acute kidney injury. Bilateral hydronephrosis. Actually, that condition has resolved yesterday. There was no hydronephrosis in both kidneys on the renal ultrasound. At this point, that condition is completely resolved. We do not need Urology consult. We will cancel it. 3. Suspected coronavirus infection. As per pulmonary indication, they ordered the test. The patient denies any suspicious contact. We will see what that test shows. 4. Disposition: I think at this point, patient is much more stable so we are going to transfer him out of the intensive care unit today. He is not requiring any more vasopressors. cc: Venkata Cm MD
[2019-10-07] MEDS: MERREM 500 MG in NS 50 ML IV SCH ×2 (07:32→16:53)
[2019-10-07] MEDS: PROTONIX IV SCH (10:16)
[2019-10-07] MEDS: SODIUM CHLORIDE 0.9% INJ SCH (10:16)
--- NOTE | 2019-10-07 18:57 | PROVIDER PROGRESS NOTE ---
Progress Note Dr. Valente Progress Note/Pulmonary and or critical care Subjective: The patient is lying in bed on room air with no acute distress noted. He states he is feeling a lot better today. Objective: Vital Signs: (last episode of fever 99.9 yesterday 1534), WV 73, RR 24, BP 97/63 and SaO2 99% on room air. Physical Examination: General: Lying in bed with no acute distress noted. HEENT: Normocephalic. Atraumatic. Trachea midline. Mucosa pink and moist. PERRL. Chest: Even and unlabored. Symmetrical excursion. Clear to auscultation bilaterally with good air entry. CVS: Regular rate and rhythm. S1 and S2 appreciated. Abdomen: Soft. Non-tender. Non-distended. Normoactive bowel sounds in all 4 quadrants. Extremities: No edema. No cyanosis. Neuro: A/O x3. Speech fluent. Follow commands. Labs and Radiology: Laboratory Results 10/07/19 10/07/19 05:20 05:20 WBC 14.68 H RBC 3.51 L Hgb 11.0 L Hct 31.9 L MCV 90.9 MCH 31.3 H MCHC 34.5 RDW Std Deviation 14.6 H Plt Count 230 MPV 10.2 Neut % (Auto) 78.1 H Lymph % (Auto) 13.1 L Metcalfe % (Auto) 6.5 Eos % (Auto) 2.2 Baso % (Auto) 0.1 Neut # (Auto) 11.46 H Lymph # (Auto) 1.93 Metcalfe # (Auto) 0.95 H Eos # (Auto) 0.32 Baso # (Auto) 0.02 Segmented Neutrophils 70 Band Neutrophils 10 H Lymphocytes 12 L Monocytes 6 Eosinophils 2 Hypochromia 1+ Sodium 136 Potassium 3.3 L Chloride 104 Carbon Dioxide 22 L Anion Gap 10 BUN 13 Creatinine 0.9 Estimated GFR/1.73 m2 > 60 BUN/Creatinine Ratio 14 Glucose 96 Calculated Osmolality 272 Calcium 8.4 L Phosphorus 1.9 L Albumin 2.6 L Assessment: SYLVIA and LLL pneumonia with prominent prevascular and peritracheal mass measuring up to 14 mm in size. Septic shock. Patient stays off vasopressor at this time. Acute kidney injury at presentation. Resolved. Ongoing tobacco use. Plan: Continue antibiotics including linezolid and meropenem. COVID-19 results pending. Daily smoking cessation education. We recommend to repeat CT scan after antibiotic therapy. Continue GI and DVT prophylaxis. Continue droplet isolation.
[2019-10-08] MEDS: MERREM 500 MG in NS 50 ML IV SCH ×2 (00:12→08:42)
[2019-10-08] MEDS: ZYVOX 600 MG/D5W 600 MG/300 ML IVPB IV SCH (04:23)
[2019-10-08 07:34] LABS: BASO# 0.07 X1000 (0.0-0.2); BASO% 0.9 % (0.0-0.8); EOS# 0.22 X1000 (0.0-0.7); EOS% 2.7 % (0.0-10.0); HEMATOCRIT 35.4 % (42.0-52.0); HEMOGLOBIN 11.9 g/dL (14.0-18.0); IMM GRAN# 0.04 X1000 (0.0-0.04); IMM GRAN% 0.5 % (0.0-0.5); LYMPH# 1.57 X1000 (1.2-3.4); LYMPH% 19.2 % (20.5-51.1); MCH 30.4 PG (27-31); MCHC 33.6 g/dL (33-37); MCV 90.5 FL (81-99); MONO# 0.76 X1000 (0.11-0.59); MONO% 9.3 % (1.7-9.3); MPV 9.5 FL (7.4-10.4); NEUT# 5.53 X1000 (1.4-6.5); NEUT% 67.4 % (42.2-75.2); PLT 251 X1000 (130-400); RBC 3.91 XMIL (4.7-6.1); RDW 14.6 % (11.5-14.5); WBC 8.19 X1000 (4.8-10.8)
[2019-10-08 08:17] LABS: AGAP 11; ALBUMIN 2.5 g/dL (3.5-5.0); BUN 10 mg/dL (8-22); CALCIUM 8.4 mg/dL (8.8-10.2); CHLORIDE 107 mmol/L (98-107); COSMO 272; CREATININE 0.7 mg/dL (0.7-1.2); ESTIMATED GFR > 60; GLUCOSE 80 mg/dL (70-104); PHOSPHORUS 2.9 mg/dL (2.7-4.5); POTASSIUM 4.5 mmol/L (3.5-5.1); SODIUM 137 mmol/L (136-145); TCO2 19 mmol/L (25-35)
[2019-10-08 08:25] VITALS: BP 114/73
[2019-10-08] MEDS: NS 1,000 ML IV SCH (08:41)
[2019-10-08] MEDS: PROTONIX IV SCH ×2 (08:42→11:26)
[2019-10-08] MEDS: SODIUM CHLORIDE 0.9% INJ SCH (08:42)
--- NOTE | 2019-10-08 12:23 | DISCHARGE SUMMARY ---
ADMISSION DATE: 10/05/2019 DISCHARGE DATE: 10/08/2019 PRIMARY CARE PROVIDER: None. CONSULTATIONS: 1. Dr. Narayanan with Nephrology. 2. Dr. Valente with Pulmonology. PERTINENT PROCEDURES: 1. Chest, abdomen and pelvis CT showed a left upper and left lower lobe pneumonia. Possibility of neoplastic disease in the left lower lobe could not be excluded. Mediastinal adenopathy. Urinary retention in the bladder with bilateral hydronephrosis. 2. Renal ultrasound, negative exam. DISCHARGE DIAGNOSES: 1. Septic shock secondary to left upper lobe pneumonia. Clinically, the patient has improved. He is no longer spiking any fevers. He has been on broad-spectrum antibiotics. 2. Acute kidney injury with bilateral hydronephrosis. That condition has actually resolved. He was followed by Nephrology and his Urology consult was canceled. 3. Suspected coronavirus infection. As per Pulmonary indication, the test was ordered. The patient denied any suspicious contacts. It looks like we are still pending those results, they have not been scanned in. HOSPITAL COURSE: 1. Briefly, Mr. Hanson is a 54-year-old gentleman who denied any prior medical history. He presented to the ED with 3 months of shortness of breath, generalized weakness, being tired all the time. He has been seen at walk-in clinics, but no primary care provider. He was given 2 weeks of antibiotics. He took 10 days of the antibiotic and symptoms did not improve. He had some subjective fevers and body aches and chills. He ruled in for sepsis, was treated accordingly with broad-spectrum antibiotics. Urine culture and blood culture show no growth. He was negative for flu A and flu B. He was followed by Dr. Narayanan as well for an acute kidney injury with bilateral hydronephrosis. Renal ultrasounds did not show anything acute. His hydronephrosis and acute kidney injury resolved with aggressive IV hydration. He was followed by Pulmonology as well for his left upper and left lower lobe pneumonia as well as a peritracheal mass measuring up to 14 mm in size. 2. Tobacco use and abuse. Daily smoking cessation was discussed. He has been fever-free for more than 24 hours and will be discharged back home today with p.o. cefdinir and doxycycline as well Ventolin. VITAL SIGNS: At time of discharge, temperature is 98.2 degrees, heart rate 65, blood pressure 114/73, O2 is 96% on room air. DISCHARGE DIET: Regular. DISCHARGE MEDICATIONS: 1. Cefdinir 300 mg p.o. b.i.d. for 20 capsules. 2. Doxycycline 100 mg p.o. b.i.d. for 20 capsules. 3. Ventolin inhaler 2 puffs inhaled q.4 hours p.r.n. shortness of breath. FOLLOWUP: Mr. Hanson is being discharged back home with self care. He is to follow up with the primary care provider of his choosing within the next 7 to 10 days. He is to take all medications as prescribed. He can return to the ED or call 911 for any worsening of symptoms. Dictated by ALETA Carballo for Venkata Cm MD Addendum: Patient seen and examined by myself. Agree with ALETA note. It reflects my assessment and plan. Patient is being discharged in stable condition. Will be seen by Pulmonary in a week. cc: Venkata Cm MD [facility]
== END 2019-10-08 13:15 | disposition home or self-care (01) | DRG 871 ==
LOC: ED 12:43 → ICU 15:41 → 3N 10-07 11:52
PROVIDERS: ATTEND Internal Medicine